=== PATIENT | male | born 1960 | race African-American/Black ===

== ENCOUNTER 2017-11-10 12:56 | Inpatient (IN) | payer OTHER ==
[2017-11-10 15:38] VITALS: BMI 27.7
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
[2017-11-10] MEDS ORDERED: LOPERAMIDE HCL 2 MG CAPSULE PO PRN (17:33)
[2017-11-10] MEDS ORDERED: MAGNESIUM CITRATE 300 ML BOTTLE PO PRN (17:33)
[2017-11-10] MEDS ORDERED: IBUPROFEN 400 MG TABLET (FP) PO PRN (17:33)
[2017-11-10] MEDS ORDERED: MAG HYDROX/AL HYDROX/SIMETH 30 ML UNIT-DOSE CUP PO PRN (17:33)
[2017-11-10] MEDS ORDERED: guaiFENesin/D-METHORPHAN HB 10 ML UNIT-DOSE CUPS PO PRN (17:33)
[2017-11-10] MEDS ORDERED: P-EPHED 60MG/TRIPROLIDI 2.5MG TABLET PO PRN (17:33)
[2017-11-10] MEDS ORDERED: MAGNESIUM HYDROX 2400MG/30ML ORAL SUSPENSION 30 ML CUP PO PRN (17:33)
[2017-11-10] MEDS ORDERED: MENTHOL/PHENOL 1 EACH UD MM PRN (17:33)
[2017-11-10] MEDS: chlordiazePOXIDE HCL 25 MG CAPSULE PO PRN (19:15)
[2017-11-10] MEDS: cloNIDine HCL 0.1 MG TABLET PO PRN (19:15)
[2017-11-10] MEDS: chlordiazePOXIDE HCL 25 MG CAPSULE PO SCH (22:36)
[2017-11-10] MEDS: BACLOFEN 10 MG TABLET (FP) PO PRN (22:36)
[2017-11-10] MEDS: NAPROXEN 500 MG TABLET (FP) PO PRN (22:36)
[2017-11-10] MEDS: RANITIDINE HCL 150 MG TABLET (FP) PO SCH (22:37)
[2017-11-10] MEDS: THIAMINE HCL 100 MG TABLET (FP) PO SCH (22:37)
[2017-11-10] MEDS: MINERAL OIL/PETROLAT/WATER TOPICAL CREAM 113 GM JAR TP SCH (22:39)
[2017-11-10] MEDS: ACETAMINOPHEN 325 MG TABLET (FP) PO PRN (22:58)
[2017-11-10 23:12] LABS: URINE APPEARANCE CLOUDY; URINE BILIRUBIN NEGATIVE (NEGATIVE); URINE BLOOD 1+ (NEGATIVE); URINE COLOR YELLOW; URINE GLUCOSE (UA) NEGATIVE (NEGATIVE); URINE KETONE NEGATIVE (NEGATIVE); URINE LEUK ESTERASE NEGATIVE (NEGATIVE); URINE NITRITE NEGATIVE (NEGATIVE); URINE UROBILINOGEN NEGATIVE mg/dL (0.2-1.0)
[2017-11-10 23:25] LABS: URINE PROTEIN 2+ (NEGATIVE)
[2017-11-11] MEDS: chlordiazePOXIDE HCL 25 MG CAPSULE PO SCH ×4 (05:43→22:59)
[2017-11-11] MEDS: ACETAMINOPHEN 325 MG TABLET (FP) PO PRN ×3 (05:45→15:46)
--- NOTE | 2017-11-11 09:16 | CONSULT ---
[facility] Psychiatric Consult - Data Date of interview: 11/11/17 Admission source: [facility] Identifying data: This is 57 years old male with psychiatric hospitalization history intoxicated with: Alcohol Substance Abuse History: - Smoking Cessation. Smoking history: Never smoked. Have you smoked in the past 12 months: No. Cigars Per Day: 0. Hx Chewing Tobacco Use: No. Initiated information on smoking cessation: No. - Substance & Tx. History. Hx Alcohol Use: Yes. Hx Substance Use: No. Substance Use Type : Alcohol. Hx Substance Use Treatment: Yes (2014). - Substances Abused. Alcohol. Route: Oral. Frequency: Daily. Amount used: GIN 1 PINT, BEER 2 OF 16 OZ. Age of first use: 14. Date of Last Use: 11/10/17 Medical History: PPD + hisotry, GERD, HTN Psychiatric History: PATOENT REPORTS HISTORY OF DEPRESSION, REPORTS MOST RECENT PSYCHIATRIC ADMISSION ON 2016 AT [facility] WITH DEPRESSED MOOD, DENIES SUICIDAL HISTORY. REPORTS NO MEDICATIONS TAKING PRIOR TO ADMISSION Physical/Sexual Abuse/Trauma History: Denies Additional Comment: Observation. Detox Unit Care Protocol Mental Status Exam - Mental Status Exam Alert and Oriented to: Person Cognitive Function: Fair Patient Appearance: Unkempt Affect: Flat Patient Behavior: Aggressive Speech Pattern: Appropriate Voice Loudness: Mildly Soft/Quiet Thought Process: Circumstantial Thought Disorder: Being Controlled Hallucinations: Denies Suicidal Ideation: Denies Homicidal Ideation: Denies Insight/Judgement: Fair Sleep: Difficulty falling asleep Appetite: Weight loss Muscle strength/Tone: Mild Hypotonicity Gait/Station: Shuffling Additional Comments: Observation. Detox Unit Care Protocol Psychiatric Findings - Problem List ([place] 1, 2,3) (1) Alcohol dependence with uncomplicated withdrawal Current Visit: Yes Status: Acute (2) Depression Current Visit: Yes Status: Suspected Qualifiers: Depression Type: dysthymia Qualified Code(s): F34.1 - Dysthymic disorder (3) Alcohol dependence Current Visit: No Status: Chronic (4) Anxiety and depression Current Visit: No Status: Chronic (5) Drug-induced mood disorder Current Visit: No Status: Chronic (6) Nicotine dependence Current Visit: No Status: Chronic - Initial Treatment Plan Initial Treatment Plan: Observation. Detox Unit Care Protocol
[2017-11-11 10:07] LABS: HEMATOCRIT 31.2 % (35.4-49); HEMOGLOBIN 9.8 GM/dL (11.7-16.9); MCH 24.7 pg (25.7-33.7); MCHC 31.3 g/dl (32.0-35.9); MEAN CELL VOLUME 78.8 fl (80-96); MEAN PLT VOLUME 8.7 fl (7.5-11.1); PLATELET COUNT 102 K/MM3 (134-434); RBC 3.95 M/mm3 (4.00-5.60); RDW 16.7 % (11.9-15.9); WHITE BLOOD COUNT 3.3 K/mm3 (4.0-10.0)
[2017-11-11 10:15] LABS: CHLORIDE 102 mmol/L (98-107); POTASSIUM 3.6 mmol/L (3.5-5.1); SODIUM 141 mmol/L (136-145)
[2017-11-11 10:33] LABS: ALBUMIN 3.4 g/dl (3.4-5.0); ALK PHOS 103 U/L (45-117); ANION GAP 10 (8-16); BILIRUBIN,TOTAL 0.5 mg/dL (0.2-1.0); BLOOD UREA NITROGEN 18 mg/dL (7-18); CALCIUM 8.5 mg/dL (8.5-10.1); CO2 29 mmol/L (21-32); CREATININE 1.1 mg/dL (0.7-1.3); GLUCOSE,RANDOM 82 mg/dL (74-106); SGOT/AST 48 U/L (15-37); SGPT/ALT 37 U/L (12-78); TOT PROT 6.9 g/dl (6.4-8.2)
[2017-11-11] MEDS: PRENATAL VITAMINS W/ FOLIC ACID TABLET (FP) PO SCH (10:35)
[2017-11-11] MEDS: NAPROXEN 500 MG TABLET (FP) PO PRN (10:36)
[2017-11-11] MEDS: RANITIDINE HCL 150 MG TABLET (FP) PO SCH ×2 (10:36→23:00)
[2017-11-11] MEDS: cloNIDine HCL 0.1 MG TABLET PO PRN (10:36)
[2017-11-11] MEDS: BACLOFEN 10 MG TABLET (FP) PO PRN (10:36)
[2017-11-11] MEDS ORDERED: IBUPROFEN 600 MG TABLET (FP) PO PRN (10:44)
[2017-11-11] MEDS ORDERED: PANTOPRAZOLE 40 MG TABLET (FP) PO ONE (10:46)
--- NOTE | 2017-11-11 10:55 | PN ---
S CIWA - CIWA Score Nausea/Vomitin-No Nausea/No Vomiting Muscle Tremors: 4-Moderate,w/Arms Extend Anxiety: 4-Mod. Anxious/Guarded Agitation: 4-Moderately Restless Paroxysmal Sweats: 3 Orientation: 0-Oriented Tacttile Disturbances: 0-None Auditory Disturbances: 0-None Visual Disturbances: 0-None Headache: 0-None Present CIWA-Ar Total Score: 15 BHS Progress Note (SOAP) Subjective: sweats shakes interrupted sleep body aches Objective: 11/11/17 10:54 Vital Signs Temperature 98 F 11/11/17 10:49 Pulse Rate 92 H 11/11/17 10:49 Respiratory Rate 16 11/11/17 10:49 Blood Pressure 148/91 11/11/17 10:49 O2 Sat by Pulse Oximetry (%) Laboratory Tests 11/10/17 11/11/17 11/11/17 21:00 07:00 07:00 WBC 3.3 L RBC 3.95 L Hgb 9.8 L D Hct 31.2 L MCV 78.8 L MCH 24.7 L MCHC 31.3 L RDW 16.7 H Plt Count 102 L MPV 8.7 Sodium 141 Potassium 3.6 Chloride 102 Carbon Dioxide 29 Anion Gap 10 BUN 18 Creatinine 1.1 D Creat Clearance w eGFR > 60 Random Glucose 82 Calcium 8.5 Total Bilirubin 0.5 D AST 48 H D ALT 37 Alkaline Phosphatase 103 D Total Protein 6.9 Albumin 3.4 Urine Color Yellow Urine Appearance Cloudy Urine pH 5.0 Ur Specific [place] 1.026 Urine Protein 2+ H Urine Glucose (UA) Negative Urine Ketones Negative Urine Blood 1+ H Urine Nitrite Negative Urine Bilirubin Negative Urine Urobilinogen Negative aaox3 low H:H; iron supplement ordered repeat u/a repeat cbc Assessment: 11/11/17 10:55 withdrawal sx Plan: continue detox increase fluids protonix 40mg ordered motrin 600mg prn f/u repeated labs
--- NOTE | 2017-11-11 11:41 | EKG ---
Test Reason : Blood Pressure : / mmHG Vent. Rate : 080 BPM Atrial Rate : 080 BPM P-R Int : 132 ms QRS Dur : 086 ms QT Int : 378 ms P-R-T Axes : 049 012 009 degrees QTc Int : 435 ms POOR DATA QUALITY, INTERPRETATION MAY BE ADVERSELY AFFECTED NORMAL SINUS RHYTHM WITH SINUS ARRHYTHMIA MODERATE VOLTAGE CRITERIA FOR LVH, MAY BE NORMAL VARIANT BORDERLINE ECG NO PREVIOUS ECGS AVAILABLE Confirmed by RICHMOND ROACH, DYLAN ([id number]) on 11/11/2017 11:40:57 AM Referred By: Confirmed By:DYLAN FRAGOSO MD
[2017-11-11] MEDS ORDERED: FLU VACCINE QUAD 60 MCG/0.5 ML (MDV 17-18) IM ONE (12:00)
--- NOTE | 2017-11-11 15:06 | EKG ---
Test Reason : Blood Pressure : / mmHG Vent. Rate : 086 BPM Atrial Rate : 086 BPM P-R Int : 134 ms QRS Dur : 090 ms QT Int : 414 ms P-R-T Axes : 065 012 006 degrees QTc Int : 495 ms NORMAL SINUS RHYTHM POSSIBLE LEFT ATRIAL ENLARGEMENT LEFT VENTRICULAR HYPERTROPHY SEPTAL INFARCT , AGE UNDETERMINED ABNORMAL ECG WHEN COMPARED WITH ECG OF 10-NOV-2017 18:57, SEPTAL INFARCT IS NOW PRESENT NONSPECIFIC T WAVE ABNORMALITY NOW EVIDENT IN ANTERIOR LEADS QT HAS LENGTHENED Confirmed by DYLAN FRAGOSO MD ([id number]) on 11/11/2017 3:06:07 PM Referred By: Confirmed By:DYLAN FRAGOSO MD
[2017-11-11] MEDS: chlordiazePOXIDE HCL 25 MG CAPSULE PO PRN (15:47)
[2017-11-11] MEDS: MINERAL OIL/PETROLAT/WATER TOPICAL CREAM 113 GM JAR TP SCH (22:59)
[2017-11-11] MEDS: THIAMINE HCL 100 MG TABLET (FP) PO SCH (23:00)
[2017-11-12] MEDS: chlordiazePOXIDE HCL 25 MG CAPSULE PO SCH ×3 (05:47→17:51)
[2017-11-12] MEDS: ACETAMINOPHEN 325 MG TABLET (FP) PO PRN ×2 (05:49→10:17)
[2017-11-12] MEDS: PRENATAL VITAMINS W/ FOLIC ACID TABLET (FP) PO SCH (10:16)
[2017-11-12] MEDS: BACLOFEN 10 MG TABLET (FP) PO PRN (10:17)
[2017-11-12] MEDS: PANTOPRAZOLE 40 MG TABLET (FP) PO SCH (10:18)
--- NOTE | 2017-11-12 10:46 | PN ---
[facility] CIWA - CIWA Score Nausea/Vomitin-No Nausea/No Vomiting Muscle Tremors: 3 Anxiety: 2 Agitation: 3 Paroxysmal Sweats: 3 Orientation: 0-Oriented Tacttile Disturbances: 0-None Auditory Disturbances: 0-None Visual Disturbances: 0-None Headache: 0-None Present CIWA-Ar Total Score: 11 [facility] Progress Note (SOAP) Subjective: sweats agitation tired body aches Objective: 11/12/17 10:45 Vital Signs Temperature 95.2 F L 11/12/17 07:07 Pulse Rate 84 11/12/17 07:07 Respiratory Rate 18 11/12/17 07:07 Blood Pressure 142/82 11/12/17 07:07 O2 Sat by Pulse Oximetry (%) Laboratory Tests 11/10/17 11/10/17 11/11/17 07:00 21:00 07:00 WBC RBC Hgb Hct MCV MCH MCHC RDW Plt Count MPV Sodium Potassium Chloride Carbon Dioxide Anion Gap BUN Creatinine Creat Clearance w eGFR Random Glucose Calcium Total Bilirubin AST ALT Alkaline Phosphatase Total Protein Albumin Urine Color Yellow Urine Appearance Cloudy Urine pH 5.0 Ur Specific [place] 1.026 Urine Protein 2+ H Urine Glucose (UA) Negative Urine Ketones Negative Urine Blood 1+ H Urine Nitrite Negative Urine Bilirubin Negative Urine Urobilinogen Negative Ur Leukocyte Esterase Negative RPR Titer Hepatitis C Antibody <0.1 HIV 1&2 Antibody Screen Negative HIV P24 Antigen Negative 11/11/17 11/11/17 11/11/17 07:00 07:00 07:00 WBC 3.3 L RBC 3.95 L Hgb 9.8 L D Hct 31.2 L MCV 78.8 L MCH 24.7 L MCHC 31.3 L RDW 16.7 H Plt Count 102 L MPV 8.7 Sodium 141 Potassium 3.6 Chloride 102 Carbon Dioxide 29 Anion Gap 10 BUN 18 Creatinine 1.1 D Creat Clearance w eGFR > 60 Random Glucose 82 Calcium 8.5 Total Bilirubin 0.5 D AST 48 H D ALT 37 Alkaline Phosphatase 103 D Total Protein 6.9 Albumin 3.4 Urine Color Urine Appearance Urine pH Ur Specific [place] Urine Protein Urine Glucose (UA) Urine Ketones Urine Blood Urine Nitrite Urine Bilirubin Urine Urobilinogen Ur Leukocyte Esterase RPR Titer Nonreactive Hepatitis C Antibody HIV 1&2 Antibody Screen HIV P24 Antigen aaox3 ambulating no acute distress Assessment: 11/12/17 10:45 withdrawal sx Plan: continue detox increase fluids
[2017-11-12] MEDS: chlordiazePOXIDE 5 MG CAPSULE PO SCH (22:16)
[2017-11-12] MEDS: THIAMINE HCL 100 MG TABLET (FP) PO SCH (22:16)
[2017-11-12] MEDS: MINERAL OIL/PETROLAT/WATER TOPICAL CREAM 113 GM JAR TP SCH (22:17)
[2017-11-13] MEDS: chlordiazePOXIDE 5 MG CAPSULE PO SCH ×3 (05:19→18:07)
[2017-11-13] MEDS: ACETAMINOPHEN 325 MG TABLET (FP) PO PRN ×3 (05:20→23:00)
[2017-11-13] MEDS: PANTOPRAZOLE 40 MG TABLET (FP) PO SCH (10:36)
[2017-11-13] MEDS: PRENATAL VITAMINS W/ FOLIC ACID TABLET (FP) PO SCH (10:36)
--- NOTE | 2017-11-13 13:14 | PN ---
BHS Progress Note (SOAP) Subjective: alert,irritable,interrupted sleep Objective: 11/13/17 13:13 Vital Signs Temperature 97.7 F 11/13/17 10:00 Pulse Rate 93 H 11/13/17 10:00 Respiratory Rate 118 H 11/13/17 10:00 Blood Pressure 140/100 11/13/17 10:00 O2 Sat by Pulse Oximetry (%) Assessment: 11/13/17 13:13 withdrawal symptom Plan: continue detox,discharge in am
[2017-11-13] MEDS: THIAMINE HCL 100 MG TABLET (FP) PO SCH (22:16)
[2017-11-13] MEDS: chlordiazePOXIDE HCL 10 MG CAPSULE PO SCH (22:16)
[2017-11-13] MEDS: MINERAL OIL/PETROLAT/WATER TOPICAL CREAM 113 GM JAR TP SCH (22:17)
[2017-11-14] MEDS: chlordiazePOXIDE HCL 10 MG CAPSULE PO SCH ×2 (05:42→11:05)
[2017-11-14] MEDS: ACETAMINOPHEN 325 MG TABLET (FP) PO PRN (05:43)
[2017-11-14] MEDS: PANTOPRAZOLE 40 MG TABLET (FP) PO SCH (10:23)
[2017-11-14] MEDS: PRENATAL VITAMINS W/ FOLIC ACID TABLET (FP) PO SCH (10:23)
--- NOTE | 2017-11-14 10:32 | DS ---
[facility] Detox Discharge Summary Admission Date: 11/10/17 Discharge Date: 11/14/17 - History Pertinent Past History: Alcohol dependence with uncomplicated withdrawals GERD - Physical Exam Results Vital Signs: Vital Signs Temperature 97.1 F L 11/14/17 06:00 Pulse Rate 76 11/14/17 06:00 Respiratory Rate 18 11/14/17 06:00 Blood Pressure 138/92 11/14/17 06:00 O2 Sat by Pulse Oximetry (%) Pertinent Admission Physical Exam Findings: withdrawal sx Laboratory Last Values WBC 3.3 K/mm3 (4.0-10.0) L 11/11/17 07:00 RBC 3.95 M/mm3 (4.00-5.60) L 11/11/17 07:00 Hgb 9.8 GM/dL (11.7-16.9) L D 11/11/17 07:00 Hct 31.2 % (35.4-49) L 11/11/17 07:00 MCV 78.8 fl (80-96) L 11/11/17 07:00 MCH 24.7 pg (25.7-33.7) L 11/11/17 07:00 MCHC 31.3 g/dl (32.0-35.9) L 11/11/17 07:00 RDW 16.7 % (11.9-15.9) H 11/11/17 07:00 Plt Count 102 K/MM3 (134-434) L 11/11/17 07:00 MPV 8.7 fl (7.5-11.1) 11/11/17 07:00 Sodium 141 mmol/L (136-145) 11/11/17 07:00 Potassium 3.6 mmol/L (3.5-5.1) 11/11/17 07:00 Chloride 102 mmol/L (98-107) 11/11/17 07:00 Carbon Dioxide 29 mmol/L (21-32) 11/11/17 07:00 Anion Gap 10 (8-16) 11/11/17 07:00 BUN 18 mg/dL (7-18) 11/11/17 07:00 Creatinine 1.1 mg/dL (0.7-1.3) D 11/11/17 07:00 Creat Clearance w eGFR > 60 (>60) 11/11/17 07:00 Random Glucose 82 mg/dL (74-106) 11/11/17 07:00 Calcium 8.5 mg/dL (8.5-10.1) 11/11/17 07:00 Total Bilirubin 0.5 mg/dL (0.2-1.0) D 11/11/17 07:00 AST 48 U/L (15-37) H D 11/11/17 07:00 ALT 37 U/L (12-78) 11/11/17 07:00 Alkaline Phosphatase 103 U/L (45-117) D 11/11/17 07:00 Total Protein 6.9 g/dl (6.4-8.2) 11/11/17 07:00 Albumin 3.4 g/dl (3.4-5.0) 11/11/17 07:00 Urine Color Yellow 11/10/17 21:00 Urine Appearance Cloudy 11/10/17 21:00 Urine pH 5.0 (5.0-8.0) 11/10/17 21:00 Ur Specific [place] 1.026 (1.001-1.035) 11/10/17 21:00 Urine Protein 2+ (NEGATIVE) H 11/10/17 21:00 Urine Glucose (UA) Negative (NEGATIVE) 11/10/17 21:00 Urine Ketones Negative (NEGATIVE) 11/10/17 21:00 Urine Blood 1+ (NEGATIVE) H 11/10/17 21:00 Urine Nitrite Negative (NEGATIVE) 11/10/17 21:00 Urine Bilirubin Negative (NEGATIVE) 11/10/17 21:00 Urine Urobilinogen Negative mg/dL (0.2-1.0) 11/10/17 21:00 Ur Leukocyte Esterase Negative (NEGATIVE) 11/10/17 21:00 RPR Titer Nonreactive (NONREACTIVE) 11/11/17 07:00 Hepatitis C Antibody <0.1 s/co ratio (0.0-0.9) 11/10/17 07:00 HIV 1&2 Antibody Screen Negative 11/11/17 07:00 HIV P24 Antigen Negative 11/11/17 07:00 labs noted - Treatment Hospital Course: Detox Protocol Followed, Detoxed Safely, Responded well, Discharged Condition Good, Rehab Referral Accepted Patient has Accepted a Rehab Referral to: 24 hour Rehab center - Medication Discharge Medications: Ambulatory Orders NK [No Known Home Medication] 05/18/15 - Diagnosis (1) Alcohol dependence with uncomplicated withdrawal Current Visit: Yes Status: Acute (2) Nicotine dependence Current Visit: Yes Status: Chronic Qualifiers: Nicotine product type: cigarettes Substance use status: uncomplicated Qualified Code(s): F17.210 - Nicotine dependence, cigarettes, uncomplicated (3) GERD (gastroesophageal reflux disease) Current Visit: Yes Status: Chronic Qualifiers: Esophagitis presence: without esophagitis Qualified Code(s): K21.9 - Gastro -esophageal reflux disease without esophagitis (4) Hypertension Current Visit: No Status: Chronic Qualifiers: Hypertension type: essential hypertension Qualified Code(s): I10 - Essential (primary) hypertension - AMA Did Patient Leave Against Medical Advice: No
[2017-11-14] MEDS ORDERED: amLODIPine BESYLATE 5 MG TABLET (FP) PO ONE (10:46)
[2017-11-14] MEDS ORDERED: cloNIDine HCL 0.1 MG TABLET PO ONE (10:56)
--- NOTE | 2017-11-14 11:11 | PN ---
S Progress Note Note: Pt noted with elevated BP 145/114, repeat Bp - 136/100. Pt denies any headache, dizziness nor other complaints One time dose of Clonidine 0.1mg ordered. Maintenance Norvasc 5mg daily prescribed and sent to [facility] pharmacy Pt to f/u with his PMD @ [facility]. Repeat Bp - 152/98 @ 11:59A pt d/c as planned
[2017-11-14 11:45] VITALS: BP 145/114; PULSE 87; TEMP 98.2
[2017-11-15] MEDS ORDERED: amLODIPine BESYLATE 5 MG TABLET (FP) PO SCH (10:00)
== END 2017-11-14 12:25 | disposition home or self-care (01) | DRG 775 ==
LOC: YASAS 12:56 → Y6N 16:47
PROVIDERS: ADMIT Internal Medicine; ATTEND Internal Medicine
PROC: HZ2ZZZZ Detoxification Services for Substance Abuse Treatment (ICD-10-PCS; principal; 2017-11-10)
DX: F10.230 Alcohol dependence with withdrawal, uncomplicated (principal); F17.210 Nicotine dependence, cigarettes, uncomplicated; F34.1 Dysthymic disorder; F41.8 Other specified anxiety disorders; F19.24 Other psychoactive substance dependence with psychoactive substance-induced mood disorder; I10 Essential (primary) hypertension; K21.9 Gastro-esophageal reflux disease without esophagitis
CPT/HCPCS: 36415; 71020-TC; 80053; 81003; 81015; 85027; 86593; 86803; 87389; 90688; 93005; 93010; G0008; J0475

== ENCOUNTER 2018-09-16 16:39 | Inpatient (IN) | payer OTHER ==
[2018-09-16 19:05] VITALS: BMI 32.5
--- NOTE | 2018-09-16 20:27 | HP ---
CIWA Score - CIWA Score Nausea/Vomitin Muscle Tremors: 4-Moderate,w/Arms Extend Anxiety: 3 Agitation: 4-Moderately Restless Paroxysmal Sweats: 1-Minimal Palms Moist Orientation: 0-Oriented Tacttile Disturbances: 0-None Auditory Disturbances: 0-None Visual Disturbances: 0-None Headache: 0-None Present CIWA-Ar Total Score: 14 Admission ROS BHS - HPI Chief Complaint: Alcohol withdrawal symptoms Allergies/Adverse Reactions: Allergies Allergy/AdvReac Type Severity Reaction Status Date / Time No Known Allergies Allergy Verified 09/16/18 20:14 History of Present Illness: 58 years old male with 15 years history of alcohol dependence is seeking admission to detox. Patient has been in previous detox at [facility] and reports insignificant period of sobriety. He has medical history of hypertension , GERD and arthritis. He denies suicide attempt and suicidal ideation at this time Exam Limitations: No Limitations - Ebola screening Have you traveled outside of the country in the last 21 days: No (N) Have you had contact with anyone from an Ebola affected area: No Have you been sick,other than usual withdrawal symptoms: No Do you have a fever: No - Review of Systems Constitutional: Chills, Malaise, Weakness EENT: reports: No Symptoms Reported Respiratory: reports: No Symptoms reported Cardiac: reports: No Symptoms Reported GI: reports: Nausea, Poor Appetite, Poor Fluid Intake, Abdominal cramping : reports: No Symptoms Reported Musculoskeletal: reports: Back Pain Integumentary: reports: No Symptoms Reported Neuro: reports: Tremors Endocrine: reports: No Symptoms Reported Hematology: reports: No Symptoms Reported Psychiatric: reports: Mood/Affect Appropiate, Orientated x3 Other Systems: Reviewed and Negative Patient History - Patient Medical History Hx Anemia: No Hx Asthma: No Hx Chronic Obstructive Pulmonary Disease (COPD): No Hx Cancer: No Hx Cardiac Disorders: No Hx Congestive Heart Failure: No Hx Hypertension: Yes Hx Hypercholesterolemia: No Hx Pacemaker: No HX Cerebrovascular Accident: No Hx Seizures: No Hx Dementia: No Hx Diabetes: No Hx Gastrointestinal Disorders: Yes (GERD) Hx Liver Disease: No Hx Genitourinary Disorders: No Hx Sexually Transmitted Disorders: No Hx Renal Disease (ESRD): No Hx Thyroid Disease: No Hx Human Immunodeficiency Virus (HIV): No (last 03/13) Hx Hepatitis C: No Hx Depression: Yes (Not on medication) Hx Suicide Attempt: No (Denies suicidal ideation at this time) Hx Bipolar Disorder: No Hx Schizophrenia: No - Patient Surgical History Past Surgical History: Yes Hx Neurologic Surgery: No Hx Cataract Extraction: No Hx Cardiac Surgery: No Hx Lung Surgery: No Hx Breast Surgery: No Hx Breast Biopsy: No Hx Abdominal Surgery: No Hx Appendectomy: No Hx Cholecystectomy: No Hx Genitourinary Surgery: No Hx Section: No Hx Orthopedic Surgery: No Other Surgical History: right inguinal hernia repair in 06/2014 Anesthesia Reaction: No - PPD History Previous Implant?: Yes (POSITIVE PPD) Documented Results: Positive w/o proof Date: 01/05/15 Results: POSITIVE PPD to be Administered?: No - Reproductive History Patient is a Female of Child Bearing Age (11 -55 yrs old): No (Male) - Smoking Cessation Smoking history: Current some day smoker Have you smoked in the past 12 months: No Aproximately how many cigarettes per day: 2 Cigars Per Day: 0 Hx Chewing Tobacco Use: No Initiated information on smoking cessation: Yes 'Breaking Loose' booklet given: 09/16/18 - Substance & Tx. History Hx Alcohol Use: Yes Hx Substance Use: No Substance Use Type: Alcohol Hx Substance Use Treatment: Yes ([facility]) - Substances Abused Alcohol Route: Oral Frequency: Daily Amount used: 1 PINT GIN Age of first use: 14 Date of Last Use: 09/16/18 Family Disease History - Family Disease History Family Disease History: [place]: Father (), Other: Father, Mother () , Brother (NO CONTACT), Sister (NO CONTACT) Admission Physical Exam S - Vital Signs Vital Signs: Vital Signs - 24 hr 09/16/18 19:03 Temperature 98.3 F Pulse Rate 118 H Respiratory 19 Rate Blood Pressure 138/78 - Physical General Appearance: Yes: Moderate Distress, Irritable, Sweating HEENTM: Yes: EOMI, Normal ENT Inspection, Normal Voice, VENECIA Respiratory: Yes: Lungs Clear, Normal Breath Sounds, No Respiratory Distress Neck: Yes: Supple Breast: Yes: Breast Exam Deferred Cardiology: Yes: Regular Rhythm, Regular Rate Abdominal: Yes: Normal Bowel Sounds Genitourinary: Yes: Within Normal Limits Back: Yes: Normal Inspection Musculoskeletal: Yes: Within Normal Limits Extremities: Yes: Tremors Neurological: Yes: rubber goods tester water II-XII NML intact, Alert, Normal Mood/Affect Integumentary: Yes: Warm Lymphatic: Yes: Within Normal Limits - Diagnostic (1) Alcohol dependence with uncomplicated withdrawal Current Visit: Yes Status: Chronic (2) Anxiety and depression Current Visit: Yes Status: Chronic (3) GERD (gastroesophageal reflux disease) Current Visit: No Status: Chronic Qualifiers: Esophagitis presence: without esophagitis Qualified Code(s): K21.9 - Gastro -esophageal reflux disease without esophagitis (4) History of anemia Current Visit: Yes Status: Chronic (5) Hypertension Current Visit: Yes Status: Chronic Qualifiers: Hypertension type: essential hypertension Qualified Code(s): I10 - Essential (primary) hypertension (6) Nicotine dependence Current Visit: Yes Status: Chronic Qualifiers: Nicotine product type: cigarettes Substance use status: uncomplicated Qualified Code(s): F17.210 - Nicotine dependence, cigarettes, uncomplicated (7) Depression Current Visit: Yes Status: Suspected Qualifiers: Depression Type: dysthymia Qualified Code(s): F34.1 - Dysthymic disorder (8) Positive PPD, treated Current Visit: Yes Status: Chronic Cleared for Admission [facility] - Detox or Rehab [facility] Level of Care: Medically Managed Detox Regimen/Protocol: Librium [facility] Breath Alcohol Content Breath Alcohol Content: 0.168 Urine Drug Screen - Results Drug Screen Negative: Yes
[2018-09-16] MEDS ORDERED: MAGNESIUM CITRATE 300 ML BOTTLE PO PRN (20:47)
[2018-09-16] MEDS ORDERED: IBUPROFEN 400 MG TABLET (FP) PO PRN (20:47)
[2018-09-16] MEDS ORDERED: LOPERAMIDE HCL 2 MG CAPSULE PO PRN (20:47)
[2018-09-16] MEDS ORDERED: chlordiazePOXIDE HCL 25 MG CAPSULE PO PRN (20:47)
[2018-09-16] MEDS ORDERED: guaiFENesin/D-METHORPHAN HB 10 ML UNIT-DOSE CUPS PO PRN (20:47)
[2018-09-16] MEDS ORDERED: NICOTINE POLACRILEX 2 MG GUM BC PRN (20:47)
[2018-09-16] MEDS ORDERED: MAGNESIUM HYDROX 2400MG/30ML ORAL SUSPENSION 30 ML CUP PO PRN (20:47)
[2018-09-16] MEDS ORDERED: P-EPHED 60MG/TRIPROLIDI 2.5MG TABLET PO PRN (20:47)
[2018-09-16] MEDS ORDERED: MENTHOL/PHENOL 1 EACH UD MM PRN (20:47)
[2018-09-16] MEDS: chlordiazePOXIDE HCL 25 MG CAPSULE PO SCH (22:00)
[2018-09-16] MEDS: THIAMINE HCL 100 MG TABLET (FP) PO SCH (22:00)
[2018-09-17] MEDS: chlordiazePOXIDE HCL 25 MG CAPSULE PO SCH ×4 (05:36→22:49)
[2018-09-17] MEDS: NICOTINE 14 MG/24 HOURS TOPICAL PATCH TD SCH (10:38)
[2018-09-17] MEDS: PRENATAL VITAMINS W/ FOLIC ACID TABLET (FP) PO SCH (10:38)
[2018-09-17 10:54] LABS: HEMATOCRIT 29.9 % (35.4-49); HEMOGLOBIN 9.2 GM/dL (11.7-16.9); MCHC 30.9 g/dl (32.0-35.9); MEAN CELL VOLUME 71.1 fl (80-96); MEAN PLT VOLUME 8.5 fl (7.5-11.1); PLATELET COUNT 152 K/MM3 (134-434); RBC 4.21 M/mm3 (4.00-5.60); RDW 18.2 % (11.9-15.9); WHITE BLOOD COUNT 5.1 K/mm3 (4.0-10.0)
[2018-09-17 11:07] LABS: ALBUMIN 3.4 g/dl (3.4-5.0); ALK PHOS 91 U/L (45-117); ANION GAP 9 MMOL/L (8-16); BILIRUBIN,TOTAL 0.3 mg/dL (0.2-1); BLOOD UREA NITROGEN 17 mg/dL (7-18); CALCIUM 8.5 mg/dL (8.5-10.1); CHLORIDE 106 mmol/L (98-107); CO2 29 mmol/L (21-32); CREATININE 1.1 mg/dL (0.55-1.3); GLUCOSE,RANDOM 81 mg/dL (74-106); POTASSIUM 4.3 mmol/L (3.5-5.1); SGOT/AST 20 U/L (15-37); SGPT/ALT 25 U/L (13-61); SODIUM 144 mmol/L (136-145); TOT PROT 7.1 g/dl (6.4-8.2)
[2018-09-17 11:20] LABS: URINE APPEARANCE CLEAR; URINE BILIRUBIN NEGATIVE (<2.0 mg/dL); URINE COLOR YELLOW; URINE GLUCOSE (UA) NEGATIVE (NEGATIVE); URINE KETONE NEGATIVE (NEGATIVE); URINE LEUK ESTERASE NEGATIVE (NEGATIVE); URINE NITRITE NEGATIVE (NEGATIVE); URINE PROTEIN NEGATIVE (NEGATIVE); URINE UROBILINOGEN NEGATIVE mg/dL (0.2-1.0)
--- NOTE | 2018-09-17 14:21 | PN ---
[facility] CIWA - CIWA Score Nausea/Vomitin-No Nausea/No Vomiting Muscle Tremors: None Anxiety: 4-Mod. Anxious/Guarded Agitation: 4-Moderately Restless Paroxysmal Sweats: No Perspiration Orientation: 0-Oriented Tacttile Disturbances: 0-None Auditory Disturbances: 0-None Visual Disturbances: 0-None Headache: 0-None Present CIWA-Ar Total Score: 8 BHS Progress Note (SOAP) Subjective: PATIENT CONTINUES WITH DETOX REGIMEN, PACING ON UNIT. +ANXIETY/RESTLESSNESS. Objective: 09/17/18 14:19 Laboratory Tests 09/17/18 09/17/18 09/17/18 08:00 08:00 08:00 WBC 5.1 RBC 4.21 Hgb 9.2 L Hct 29.9 L MCV 71.1 L MCH 22.0 L D MCHC 30.9 L RDW 18.2 H Plt Count 152 D MPV 8.5 Sodium 144 Potassium 4.3 Chloride 106 Carbon Dioxide 29 Anion Gap 9 BUN 17 Creatinine 1.1 Creat Clearance w eGFR > 60 Random Glucose 81 Calcium 8.5 Total Bilirubin 0.3 AST 20 ALT 25 Alkaline Phosphatase 91 Total Protein 7.1 Albumin 3.4 Urine Color Urine Appearance Urine pH Ur Specific [place] Urine Protein Urine Glucose (UA) Urine Ketones Urine Blood Urine Nitrite Urine Bilirubin Urine Urobilinogen Ur Leukocyte Esterase RPR Titer Nonreactive 09/17/18 08:50 WBC RBC Hgb Hct MCV MCH MCHC RDW Plt Count MPV Sodium Potassium Chloride Carbon Dioxide Anion Gap BUN Creatinine Creat Clearance w eGFR Random Glucose Calcium Total Bilirubin AST ALT Alkaline Phosphatase Total Protein Albumin Urine Color Yellow Urine Appearance Clear Urine pH 5.0 Ur Specific [place] 1.015 Urine Protein Negative Urine Glucose (UA) Negative Urine Ketones Negative Urine Blood Negative Urine Nitrite Negative Urine Bilirubin Negative Urine Urobilinogen Negative Ur Leukocyte Esterase Negative RPR Titer Vital Signs Temperature 98 F 09/17/18 10:51 Pulse Rate 110 H 09/17/18 10:51 Respiratory Rate 18 09/17/18 10:51 Blood Pressure 140/89 09/17/18 10:51 O2 Sat by Pulse Oximetry (%) ALERT AND ORIENTED X 3 AMB AD VITOR, PACING ON UNIT EXT FULL ROM Assessment: 09/17/18 14:20 WITHDRAWAL SX Plan: CONTINUE DETOX ORDERED ENCOURAGE ORAL FLUIDS CONTINUE TO MONITOR CLINICALLY
--- NOTE | 2018-09-17 18:09 | EKG ---
Test Reason : Blood Pressure : / mmHG Vent. Rate : 101 BPM Atrial Rate : 101 BPM P-R Int : 136 ms QRS Dur : 092 ms QT Int : 344 ms P-R-T Axes : 064 018 -10 degrees QTc Int : 446 ms SINUS TACHYCARDIA VOLTAGE CRITERIA FOR LEFT VENTRICULAR HYPERTROPHY ABNORMAL ECG WHEN COMPARED WITH ECG OF 11-NOV-2017 13:51, CRITERIA FOR SEPTAL INFARCT ARE NO LONGER PRESENT T WAVE INVERSION MORE EVIDENT IN INFERIOR LEADS QT HAS SHORTENED Confirmed by DYLAN FRAGOSO MD ([id number]) on 09/17/2018 6:08:50 PM Referred By: Confirmed By:DYLAN FRAGOSO MD
[2018-09-17] MEDS: THIAMINE HCL 100 MG TABLET (FP) PO SCH (22:49)
[2018-09-17] MEDS: MELATONIN 5 MG TABLETS PO PRN (22:50)
[2018-09-18] MEDS: chlordiazePOXIDE HCL 25 MG CAPSULE PO SCH ×3 (05:36→17:47)
[2018-09-18] MEDS: MAG HYDROX/AL HYDROX/SIMETH 30 ML UNIT-DOSE CUP PO PRN ×2 (05:38→10:55)
[2018-09-18] MEDS: PRENATAL VITAMINS W/ FOLIC ACID TABLET (FP) PO SCH (10:14)
[2018-09-18] MEDS: ACETAMINOPHEN 325 MG TABLET (FP) PO PRN (10:15)
[2018-09-18] MEDS: NICOTINE 14 MG/24 HOURS TOPICAL PATCH TD SCH (10:16)
--- NOTE | 2018-09-18 17:40 | PN ---
S CIWA - CIWA Score Nausea/Vomitin Muscle Tremors: 3 Anxiety: 3 Agitation: 3 Paroxysmal Sweats: 3 Orientation: 0-Oriented Tacttile Disturbances: 0-None Auditory Disturbances: 0-None Visual Disturbances: 0-None Headache: 1-Very Mild CIWA-Ar Total Score: 15 S Progress Note (SOAP) Subjective: Stomach ache, sweating, interrupted sleep Objective: 09/18/18 17:39 Last Vital Signs Temp Pulse Resp BP Pulse Ox 97.4 F L 99 H 20 128/85 09/18/18 13:20 09/18/18 13:20 09/18/18 13:20 09/18/18 13:20 Laboratory Tests 09/17/18 09/17/18 09/17/18 08:00 08:00 08:00 WBC 5.1 RBC 4.21 Hgb 9.2 L Hct 29.9 L MCV 71.1 L MCH 22.0 L D MCHC 30.9 L RDW 18.2 H Plt Count 152 D MPV 8.5 Sodium 144 Potassium 4.3 Chloride 106 Carbon Dioxide 29 Anion Gap 9 BUN 17 Creatinine 1.1 Creat Clearance w eGFR > 60 Random Glucose 81 Calcium 8.5 Total Bilirubin 0.3 AST 20 ALT 25 Alkaline Phosphatase 91 Total Protein 7.1 Albumin 3.4 Urine Color Urine Appearance Urine pH Ur Specific [place] Urine Protein Urine Glucose (UA) Urine Ketones Urine Blood Urine Nitrite Urine Bilirubin Urine Urobilinogen Ur Leukocyte Esterase RPR Titer Nonreactive 09/17/18 08:50 WBC RBC Hgb Hct MCV MCH MCHC RDW Plt Count MPV Sodium Potassium Chloride Carbon Dioxide Anion Gap BUN Creatinine Creat Clearance w eGFR Random Glucose Calcium Total Bilirubin AST ALT Alkaline Phosphatase Total Protein Albumin Urine Color Yellow Urine Appearance Clear Urine pH 5.0 Ur Specific [place] 1.015 Urine Protein Negative Urine Glucose (UA) Negative Urine Ketones Negative Urine Blood Negative Urine Nitrite Negative Urine Bilirubin Negative Urine Urobilinogen Negative Ur Leukocyte Esterase Negative RPR Titer Labs reviewed Assessment: 09/18/18 17:39 Withdrawal symptoms Plan: Continue detox Encouraged PO water intake
[2018-09-18] MEDS: MELATONIN 5 MG TABLETS PO PRN (22:51)
[2018-09-18] MEDS: THIAMINE HCL 100 MG TABLET (FP) PO SCH (22:51)
[2018-09-18] MEDS: chlordiazePOXIDE 5 MG CAPSULE PO SCH (22:51)
[2018-09-19] MEDS: chlordiazePOXIDE 5 MG CAPSULE PO SCH ×3 (05:28→17:45)
[2018-09-19] MEDS: ACETAMINOPHEN 325 MG TABLET (FP) PO PRN ×3 (05:29→22:23)
[2018-09-19] MEDS: NICOTINE 14 MG/24 HOURS TOPICAL PATCH TD SCH (10:38)
[2018-09-19] MEDS: PRENATAL VITAMINS W/ FOLIC ACID TABLET (FP) PO SCH (10:38)
--- NOTE | 2018-09-19 14:15 | PN ---
BHS Progress Note (SOAP) Subjective: Diarrhea Objective: 09/19/18 14:14 Last Vital Signs Temp Pulse Resp BP Pulse Ox 97.0 F L 98 H 20 145/97 09/19/18 13:19 09/19/18 13:19 09/19/18 13:19 09/19/18 13:19 Laboratory Tests 09/17/18 09/17/18 09/17/18 08:00 08:00 08:00 WBC 5.1 RBC 4.21 Hgb 9.2 L Hct 29.9 L MCV 71.1 L MCH 22.0 L D MCHC 30.9 L RDW 18.2 H Plt Count 152 D MPV 8.5 Sodium 144 Potassium 4.3 Chloride 106 Carbon Dioxide 29 Anion Gap 9 BUN 17 Creatinine 1.1 Creat Clearance w eGFR > 60 Random Glucose 81 Calcium 8.5 Total Bilirubin 0.3 AST 20 ALT 25 Alkaline Phosphatase 91 Total Protein 7.1 Albumin 3.4 Urine Color Urine Appearance Urine pH Ur Specific [place] Urine Protein Urine Glucose (UA) Urine Ketones Urine Blood Urine Nitrite Urine Bilirubin Urine Urobilinogen Ur Leukocyte Esterase RPR Titer Nonreactive 09/17/18 08:50 WBC RBC Hgb Hct MCV MCH MCHC RDW Plt Count MPV Sodium Potassium Chloride Carbon Dioxide Anion Gap BUN Creatinine Creat Clearance w eGFR Random Glucose Calcium Total Bilirubin AST ALT Alkaline Phosphatase Total Protein Albumin Urine Color Yellow Urine Appearance Clear Urine pH 5.0 Ur Specific [place] 1.015 Urine Protein Negative Urine Glucose (UA) Negative Urine Ketones Negative Urine Blood Negative Urine Nitrite Negative Urine Bilirubin Negative Urine Urobilinogen Negative Ur Leukocyte Esterase Negative RPR Titer Labs reviewed Assessment: 09/19/18 14:14 Withdrawal symptoms Noted with elevated blood pressure Plan: Continue detox Encouraged PO water intake Elevated blood pressure: clonidine 0.1mg PO q8hr prn (give if b/p > 140/90)
[2018-09-19] MEDS: MELATONIN 5 MG TABLETS PO PRN ×2 (22:22→22:40)
[2018-09-19] MEDS: cloNIDine HCL 0.1 MG TABLET PO PRN (22:22)
[2018-09-19] MEDS: chlordiazePOXIDE HCL 10 MG CAPSULE PO SCH (22:22)
[2018-09-19] MEDS: THIAMINE HCL 100 MG TABLET (FP) PO SCH (22:22)
[2018-09-20] MEDS: cloNIDine HCL 0.1 MG TABLET PO PRN (06:25)
[2018-09-20] MEDS: chlordiazePOXIDE HCL 10 MG CAPSULE PO SCH ×2 (06:25→10:50)
[2018-09-20] MEDS: ACETAMINOPHEN 325 MG TABLET (FP) PO PRN ×2 (06:25→10:50)
[2018-09-20] MEDS: PRENATAL VITAMINS W/ FOLIC ACID TABLET (FP) PO SCH (10:50)
[2018-09-20] MEDS: NICOTINE 14 MG/24 HOURS TOPICAL PATCH TD SCH (10:50)
--- NOTE | 2018-09-20 11:44 | DS ---
[facility] Detox Discharge Summary Admission Date: 09/16/18 Discharge Date: 09/20/18 - History Present History: Alcohol Dependence Pertinent Past History: Alcohol dependence GERD HTN PPD Positive Nicotine dependence - Physical Exam Results Vital Signs: Vital Signs Temperature 98 F 09/20/18 09:32 Pulse Rate 91 H 09/20/18 09:32 Respiratory Rate 18 09/20/18 09:32 Blood Pressure 119/80 09/20/18 09:32 O2 Sat by Pulse Oximetry (%) Pertinent Admission Physical Exam Findings: Withdrawal symptoms Laboratory Tests 09/17/18 09/17/18 09/17/18 08:00 08:00 08:00 WBC 5.1 RBC 4.21 Hgb 9.2 L Hct 29.9 L MCV 71.1 L MCH 22.0 L D MCHC 30.9 L RDW 18.2 H Plt Count 152 D MPV 8.5 Sodium 144 Potassium 4.3 Chloride 106 Carbon Dioxide 29 Anion Gap 9 BUN 17 Creatinine 1.1 Creat Clearance w eGFR > 60 Random Glucose 81 Calcium 8.5 Total Bilirubin 0.3 AST 20 ALT 25 Alkaline Phosphatase 91 Total Protein 7.1 Albumin 3.4 Urine Color Urine Appearance Urine pH Ur Specific [place] Urine Protein Urine Glucose (UA) Urine Ketones Urine Blood Urine Nitrite Urine Bilirubin Urine Urobilinogen Ur Leukocyte Esterase RPR Titer Nonreactive 09/17/18 08:50 WBC RBC Hgb Hct MCV MCH MCHC RDW Plt Count MPV Sodium Potassium Chloride Carbon Dioxide Anion Gap BUN Creatinine Creat Clearance w eGFR Random Glucose Calcium Total Bilirubin AST ALT Alkaline Phosphatase Total Protein Albumin Urine Color Yellow Urine Appearance Clear Urine pH 5.0 Ur Specific [place] 1.015 Urine Protein Negative Urine Glucose (UA) Negative Urine Ketones Negative Urine Blood Negative Urine Nitrite Negative Urine Bilirubin Negative Urine Urobilinogen Negative Ur Leukocyte Esterase Negative RPR Titer Labs reviewed - Treatment Hospital Course: Detox Protocol Followed, Detoxed Safely, Responded well, Discharged Condition Good - Medication Discharge Medications: Ambulatory Orders NK [No Known Home Medication] 09/16/18 - Diagnosis (1) Alcohol dependence with uncomplicated withdrawal Current Visit: Yes Status: Acute (2) Anxiety and depression Current Visit: Yes Status: Chronic (3) GERD (gastroesophageal reflux disease) Current Visit: Yes Status: Chronic Qualifiers: Esophagitis presence: without esophagitis Qualified Code(s): K21.9 - Gastro -esophageal reflux disease without esophagitis (4) Hypertension Current Visit: Yes Status: Chronic Qualifiers: Hypertension type: essential hypertension Qualified Code(s): I10 - Essential (primary) hypertension (5) Nicotine dependence Current Visit: Yes Status: Chronic Qualifiers: Nicotine product type: cigarettes Substance use status: uncomplicated Qualified Code(s): F17.210 - Nicotine dependence, cigarettes, uncomplicated (6) Positive PPD, treated Current Visit: Yes Status: Chronic (7) Depression Current Visit: Yes Status: Suspected Qualifiers: Depression Type: dysthymia Qualified Code(s): F34.1 - Dysthymic disorder - AMA Did Patient Leave Against Medical Advice: No (F/U with your PCP within 1-2 weeks )
[2018-09-20 13:26] VITALS: BP 142/96; PULSE 107; TEMP 98.2
== END 2018-09-20 14:36 | disposition home or self-care (01) | DRG 775 ==
LOC: YASAS 16:39 → Y3N 20:33
PROC: HZ2ZZZZ Detoxification Services for Substance Abuse Treatment (ICD-10-PCS; principal; 2018-09-16)
DX: F10.230 Alcohol dependence with withdrawal, uncomplicated (principal); F17.210 Nicotine dependence, cigarettes, uncomplicated; F41.9 Anxiety disorder, unspecified; F34.1 Dysthymic disorder; I10 Essential (primary) hypertension; K21.9 Gastro-esophageal reflux disease without esophagitis; R76.11 Nonspecific reaction to tuberculin skin test without active tuberculosis; Z59.0 Homelessness
CPT/HCPCS: 36415; 71046-TC-FY; 80053; 81003; 85027; 86593; 93005; 93010; J0735

== ENCOUNTER 2018-10-28 17:32 | Inpatient (IN) | payer OTHER ==
[2018-10-28 18:17] VITALS: BMI 30.9
--- NOTE | 2018-10-28 19:49 | HP ---
CIWA Score Nausea/Vomitin-No Nausea/No Vomiting Muscle Tremors: 1-None Visible, but [place] Anxiety: 4-Mod. Anxious/Guarded Agitation: 4-Moderately Restless Paroxysmal Sweats: 3 Orientation: 2-Disoriented Date<2 days Tacttile Disturbances: 0-None Auditory Disturbances: 0-None Visual Disturbances: 0-None Headache: 0-None Present CIWA-Ar Total Score: 14 - Admission Criteria OASAS Guidelines: Admission for Medically Managed Detox: Requires at least one of the followin. CIWA greater than 12 2. Seizures within the past 24 hours 3. Delirium tremens within the past 24 hours 4. Hallucinations within the past 24 hours 5. Acute intervention needed for co occurring medical disorder 6. Acute intervention needed for co occurring psychiatric disorder 7. Severe withdrawal that cannot be handled at a lower level of care (continued vomiting, continued diarrhea, abnormal vital signs) requiring intravenous medication and/or fluids 8. Patient presents the following: CIWA greater than 12 Admission Criteria Met: Admission criteria met Admission ROS [facility] Chief Complaint: C/O WITHDRAWAL SX'S. SEEKING DETOX FROM ALCOHOL Allergies/Adverse Reactions: Allergies Allergy/AdvReac Type Severity Reaction Status Date / Time No Known Allergies Allergy Verified 09/16/18 20:14 History of Present Illness: 58 Y.O. MALE WITH HX/O ALCOHOLISM HERE FOR DETOX. CLIENT IS REFERRED BY HIS HALF-WAY AT [facility]. HE REPORTS HIS LAST ADMISSION HERE TO BE OVER A YEAR AGO. DENIES ANY SIGNIFICANT PERIOD OF CLEAN TIME. DENIES HX/O SEIZURES, DT'S, AVH , BLACK OUTS. HE IS CURRENTLY HOMELESS PMHX- HTN, OA PSYCH- DENIES MEDS- NON COMPLAINT WITH MEDS; DOES NOT RECALL Exam Limitations: No Limitations - Ebola screening Have you traveled outside of the country in the last 21 days: No Have you had contact with anyone from an Ebola affected area: No Have you been sick,other than usual withdrawal symptoms: No Do you have a fever: No - Review of Systems Constitutional: No Symptoms Reported EENT: reports: Other (MISSING TEETH) Respiratory: reports: No Symptoms reported Cardiac: reports: No Symptoms Reported GI: reports: Poor Fluid Intake : reports: No Symptoms Reported Musculoskeletal: reports: Joint Pain (R/T OA) Integumentary: reports: Flushing Neuro: reports: No Symptoms reported Endocrine: reports: No Symptoms Reported Hematology: reports: No Symptoms Reported Psychiatric: reports: Anxious Other Systems: Reviewed and Negative Patient History - Patient Medical History Hx Anemia: No Hx Asthma: No Hx Chronic Obstructive Pulmonary Disease (COPD): No Hx Cancer: No Hx Cardiac Disorders: No Hx Congestive Heart Failure: No Hx Hypertension: Yes Hx Hypercholesterolemia: No Hx Pacemaker: No HX Cerebrovascular Accident: No Hx Seizures: No Hx Dementia: No Hx Diabetes: No Hx Gastrointestinal Disorders: Yes (GERD) Hx Liver Disease: No Hx Genitourinary Disorders: No Hx Sexually Transmitted Disorders: No Hx Renal Disease (ESRD): No Hx Thyroid Disease: No Hx Human Immunodeficiency Virus (HIV): No (last 03/13) Hx Hepatitis C: No Hx Depression: Yes (Not on medication) Hx Suicide Attempt: No (Denies suicidal ideation at this time) Hx Bipolar Disorder: No Hx Schizophrenia: No Other Medical History: DENIES - Patient Surgical History Past Surgical History: Yes Hx Neurologic Surgery: No Hx Cataract Extraction: No Hx Cardiac Surgery: No Hx Lung Surgery: No Hx Breast Surgery: No Hx Breast Biopsy: No Hx Abdominal Surgery: No Hx Appendectomy: No Hx Cholecystectomy: No Hx Genitourinary Surgery: No Hx Section: No Hx Orthopedic Surgery: No Other Surgical History: right inguinal hernia repair in 06/2014 Anesthesia Reaction: No - PPD History Previous Implant?: Yes Documented Results: Negative w/proof Implanted On Prior [facility] Admission?: Yes Date: 01/05/15 Results: POSITIVE PPD to be Administered?: No - Smoking Cessation Smoking history: Current some day smoker Have you smoked in the past 12 months: No Aproximately how many cigarettes per day: 2 Cigars Per Day: 0 Hx Chewing Tobacco Use: No Initiated information on smoking cessation: Yes 'Breaking Loose' booklet given: 10/28/18 - Substance & Tx. History Hx Alcohol Use: Yes Hx Substance Use: Yes Substance Use Type: Alcohol Hx Substance Use Treatment: Yes (CAR) - Substances Abused VODKA Route: Oral Frequency: Daily Amount used: 1 PINT Age of first use: 14 Date of Last Use: 10/28/18 Family Disease History - Family Disease History Family Disease History: [place]: Father (), Other: Father, Mother () , Brother (NO CONTACT), Sister (NO CONTACT) Admission Physical Exam BHS - Vital Signs Vital Signs: Vital Signs - 24 hr 10/28/18 18:16 Temperature 98 F Pulse Rate 103 H Respiratory 18 Rate Blood Pressure 157/94 - Physical General Appearance: Yes: Appropriately Dressed, Alcohol on Breath, Other ( MALODUROUS) HEENTM: Yes: EOMI, Normocephalic, VENECIA, Pharynx Normal, Other (MISSING TEETH) Respiratory: Yes: Chest Non-Tender, Lungs Clear, Normal Breath Sounds, No Respiratory Distress, No Accessory Muscle Use Neck: Yes: No masses,lesions,Nodules, Supple, Trachea in good position Breast: Yes: Breast Exam Deferred Cardiology: Yes: Regular Rhythm, Regular Rate, S1, S2 Abdominal: Yes: Normal Bowel Sounds, Non Tender, Protuberent, Distended Genitourinary: Yes: Within Normal Limits (NO C/O) Back: Yes: Normal Inspection Musculoskeletal: Yes: full range of Motion, Gait Steady Extremities: Yes: Normal Range of Motion, Non-Tender, Tremors (FELT) Neurological: Yes: Alert, Motor Strength 5/5, Depressed Affect Integumentary: Yes: Dry, Warm, Other (FLUSHED) Lymphatic: Yes: Within Normal Limits - Diagnostic (1) At risk for dehydration due to poor fluid intake Current Visit: Yes Status: Acute (2) Alcohol dependence with uncomplicated withdrawal Current Visit: Yes Status: Acute (3) Drug-induced mood disorder Current Visit: Yes Status: Suspected (4) GERD (gastroesophageal reflux disease) Current Visit: Yes Status: Chronic Qualifiers: Esophagitis presence: without esophagitis Qualified Code(s): K21.9 - Gastro -esophageal reflux disease without esophagitis (5) Hypertension Current Visit: Yes Status: Chronic Qualifiers: Hypertension type: essential hypertension Qualified Code(s): I10 - Essential (primary) hypertension (6) Nicotine dependence Current Visit: Yes Status: Chronic Qualifiers: Nicotine product type: cigarettes Substance use status: uncomplicated Qualified Code(s): F17.210 - Nicotine dependence, cigarettes, uncomplicated (7) Positive PPD, treated Current Visit: Yes Status: Chronic (8) Non compliance w medication regimen Current Visit: Yes Status: Chronic Cleared for Admission BHS - Detox or Rehab [facility] Level of Care: Medically Managed Detox Regimen/Protocol: Librium Claeared for Rehab Admission: No BHS Breath Alcohol Content Breath Alcohol Content: 0 Urine Drug Screen - Results Drug Screen Negative: No Urine Drug Screen Results: BZO-Benzodiazepines
[2018-10-28] MEDS ORDERED: chlordiazePOXIDE HCL 25 MG CAPSULE PO PRN (20:04)
[2018-10-28] MEDS ORDERED: MAGNESIUM HYDROX 2400MG/30ML ORAL SUSPENSION 30 ML CUP PO PRN (20:04)
[2018-10-28] MEDS ORDERED: MAGNESIUM CITRATE 300 ML BOTTLE PO PRN (20:04)
[2018-10-28] MEDS ORDERED: IBUPROFEN 400 MG TABLET (FP) PO PRN (20:04)
[2018-10-28] MEDS ORDERED: NICOTINE POLACRILEX 2 MG GUM BUC PRN (20:04)
[2018-10-28] MEDS ORDERED: hydrOXYzine PAMOATE 50 MG CAPSULE (FP) PO PRN (20:04)
[2018-10-28] MEDS ORDERED: ACETAMINOPHEN 325 MG TABLET (FP) PO PRN (20:04)
[2018-10-28] MEDS ORDERED: guaiFENesin/D-METHORPHAN HB 10 ML UNIT-DOSE CUPS PO PRN (20:04)
[2018-10-28] MEDS ORDERED: MENTHOL/PHENOL 1 EACH UD MM PRN (20:04)
[2018-10-28] MEDS ORDERED: LOPERAMIDE HCL 2 MG CAPSULE PO PRN (20:04)
[2018-10-28] MEDS ORDERED: MAG HYDROX/AL HYDROX/SIMETH 30 ML UNIT-DOSE CUP PO PRN (20:04)
[2018-10-28] MEDS ORDERED: P-EPHED 60MG/TRIPROLIDI 2.5MG TABLET PO PRN (20:04)
[2018-10-28] MEDS: THIAMINE HCL 100 MG TABLET (FP) PO SCH (21:09)
[2018-10-28] MEDS: cloNIDine HCL 0.1 MG TABLET PO SCH (21:09)
[2018-10-28] MEDS: MELATONIN 5 MG TABLETS PO PRN (22:21)
[2018-10-28] MEDS: chlordiazePOXIDE HCL 25 MG CAPSULE PO SCH (22:21)
[2018-10-29] MEDS: chlordiazePOXIDE HCL 25 MG CAPSULE PO SCH ×4 (05:42→22:08)
[2018-10-29] MEDS: cloNIDine HCL 0.1 MG TABLET PO SCH ×2 (10:28→22:08)
[2018-10-29] MEDS: NICOTINE 14 MG/24 HOURS TOPICAL PATCH TD SCH (10:29)
[2018-10-29] MEDS: PRENATAL VITAMINS W/ FOLIC ACID TABLET (FP) PO SCH (10:29)
[2018-10-29 10:48] LABS: MCH 22.6 pg (25.7-33.7); MCHC 30.3 g/dl (32.0-35.9); MEAN CELL VOLUME 74.8 fl (80-96); MEAN PLT VOLUME 8.9 fl (7.5-11.1); PLATELET COUNT 133 K/MM3 (134-434); RBC 4.41 M/mm3 (4.00-5.60); RDW 20.7 % (11.9-15.9); WHITE BLOOD COUNT 4.1 K/mm3 (4.0-10.0)
[2018-10-29 11:10] LABS: ALBUMIN 3.2 g/dl (3.4-5.0); ALK PHOS 99 U/L (45-117); ANION GAP 6 MMOL/L (8-16); BILIRUBIN,TOTAL 0.3 mg/dL (0.2-1); BLOOD UREA NITROGEN 19 mg/dL (7-18); CALCIUM 8.3 mg/dL (8.5-10.1); CHLORIDE 104 mmol/L (98-107); CO2 30 mmol/L (21-32); CREATININE 1.1 mg/dL (0.55-1.3); GLUCOSE,RANDOM 78 mg/dL (74-106); POTASSIUM 3.8 mmol/L (3.5-5.1); SGOT/AST 27 U/L (15-37); SGPT/ALT 35 U/L (13-61); SODIUM 140 mmol/L (136-145); TOT PROT 6.9 g/dl (6.4-8.2)
--- NOTE | 2018-10-29 12:08 | PN ---
S CIWA - CIWA Score Nausea/Vomitin-No Nausea/No Vomiting Muscle Tremors: 3 Anxiety: 4-Mod. Anxious/Guarded Agitation: 3 Paroxysmal Sweats: 1-Minimal Palms Moist Orientation: 0-Oriented Tacttile Disturbances: 0-None Auditory Disturbances: 0-None Visual Disturbances: 0-None Headache: 0-None Present CIWA-Ar Total Score: 11 BHS Progress Note (SOAP) Subjective: SLIGHT ANXIETY. PT REPORTS INTERMITTENT SLEEP BUT REQUESTED FOR SLEEPING PILL THAT HELPED. Objective: 10/29/18 12:07 Vital Signs 10/29/18 10/29/18 06:30 09:44 Temperature 97.1 F L 97.8 F Pulse Rate 65 82 Respiratory 18 18 Rate Blood Pressure 121/79 122/80 Laboratory Tests 10/29/18 10/29/18 07:50 07:50 WBC 4.1 RBC 4.41 Hgb 10.0 L Hct 33.0 L MCV 74.8 L MCH 22.6 L MCHC 30.3 L RDW 20.7 H Plt Count 133 L MPV 8.9 Sodium 140 Potassium 3.8 Chloride 104 Carbon Dioxide 30 Anion Gap 6 L BUN 19 H Creatinine 1.1 Creat Clearance w eGFR > 60 Random Glucose 78 Calcium 8.3 L Total Bilirubin 0.3 AST 27 ALT 35 Alkaline Phosphatase 99 Total Protein 6.9 Albumin 3.2 L DECREASED H/H HX OF ANEMIA Assessment: 10/29/18 12:08 WITHDRAWAL SX HX OF ANEMIA Plan: CONTINUE DETOX FEOSOL 325 MG PO BID
[2018-10-29] MEDS: FERROUS SO4 325 MG TABLET (FP) PO SCH ×2 (13:22→22:08)
[2018-10-29] MEDS: MELATONIN 5 MG TABLETS PO PRN (22:08)
[2018-10-29] MEDS: THIAMINE HCL 100 MG TABLET (FP) PO SCH (22:08)
[2018-10-30] MEDS: chlordiazePOXIDE HCL 25 MG CAPSULE PO SCH ×3 (05:32→17:11)
[2018-10-30] MEDS: cloNIDine HCL 0.1 MG TABLET PO SCH ×2 (10:10→22:19)
[2018-10-30] MEDS: NICOTINE 14 MG/24 HOURS TOPICAL PATCH TD SCH (10:10)
[2018-10-30] MEDS: FERROUS SO4 325 MG TABLET (FP) PO SCH ×2 (10:10→22:18)
[2018-10-30] MEDS: PRENATAL VITAMINS W/ FOLIC ACID TABLET (FP) PO SCH (10:10)
--- NOTE | 2018-10-30 15:33 | PN ---
[facility] CIWA - CIWA Score Nausea/Vomitin-Mild Nausea/No Vomiting Muscle Tremors: 3 Anxiety: 2 Agitation: 2 Paroxysmal Sweats: 2 Orientation: 0-Oriented Tacttile Disturbances: 0-None Auditory Disturbances: 0-None Visual Disturbances: 0-None Headache: 0-None Present CIWA-Ar Total Score: 10 [facility] Progress Note (SOAP) Subjective: Tremor, anxious Objective: 10/30/18 15:30 Last Vital Signs Temp Pulse Resp BP Pulse Ox 97.8 F 62 18 140/92 10/30/18 13:24 10/30/18 13:24 10/30/18 13:24 10/30/18 13:24 Laboratory Tests 10/29/18 10/29/18 10/29/18 07:50 07:50 07:50 WBC 4.1 RBC 4.41 Hgb 10.0 L Hct 33.0 L MCV 74.8 L MCH 22.6 L MCHC 30.3 L RDW 20.7 H Plt Count 133 L MPV 8.9 Sodium 140 Potassium 3.8 Chloride 104 Carbon Dioxide 30 Anion Gap 6 L BUN 19 H Creatinine 1.1 Creat Clearance w eGFR > 60 Random Glucose 78 Calcium 8.3 L Total Bilirubin 0.3 AST 27 ALT 35 Alkaline Phosphatase 99 Total Protein 6.9 Albumin 3.2 L RPR Titer Nonreactive Labs reviewed: anemia noted, mild azotemia Assessment: 10/30/18 15:31 Withdrawal symptoms Noted with anemia and mild azotemia Plan: Continue detox Anemia: continue ferrous sulfate, follow up with PCP for monitoring Mild azotemia: encouraged PO water hydration
[2018-10-30] MEDS: THIAMINE HCL 100 MG TABLET (FP) PO SCH (22:18)
[2018-10-30] MEDS: MELATONIN 5 MG TABLETS PO PRN (22:19)
[2018-10-30] MEDS: chlordiazePOXIDE 5 MG CAPSULE PO SCH (22:19)
[2018-10-31] MEDS: chlordiazePOXIDE 5 MG CAPSULE PO SCH ×3 (05:26→17:44)
[2018-10-31] MEDS: cloNIDine HCL 0.1 MG TABLET PO SCH ×2 (10:09→22:11)
[2018-10-31] MEDS: FERROUS SO4 325 MG TABLET (FP) PO SCH ×2 (10:09→22:11)
[2018-10-31] MEDS: PRENATAL VITAMINS W/ FOLIC ACID TABLET (FP) PO SCH (10:09)
[2018-10-31] MEDS: NICOTINE 14 MG/24 HOURS TOPICAL PATCH TD SCH (10:10)
--- NOTE | 2018-10-31 10:21 | PN ---
[facility] Progress Note (SOAP) Subjective: feeling better today no tremor less sweat no gi distress social with peers in day room Objective: 10/31/18 10:20 Vital Signs Temperature 97.9 F 10/31/18 09:25 Pulse Rate 87 10/31/18 09:25 Respiratory Rate 17 10/31/18 09:25 Blood Pressure 126/88 10/31/18 09:25 O2 Sat by Pulse Oximetry (%) Laboratory Last Values WBC 4.1 K/mm3 (4.0-10.0) 10/29/18 07:50 RBC 4.41 M/mm3 (4.00-5.60) 10/29/18 07:50 Hgb 10.0 GM/dL (11.7-16.9) L 10/29/18 07:50 Hct 33.0 % (35.4-49) L 10/29/18 07:50 MCV 74.8 fl (80-96) L 10/29/18 07:50 MCH 22.6 pg (25.7-33.7) L 10/29/18 07:50 MCHC 30.3 g/dl (32.0-35.9) L 10/29/18 07:50 RDW 20.7 % (11.9-15.9) H 10/29/18 07:50 Plt Count 133 K/MM3 (134-434) L 10/29/18 07:50 MPV 8.9 fl (7.5-11.1) 10/29/18 07:50 Sodium 140 mmol/L (136-145) 10/29/18 07:50 Potassium 3.8 mmol/L (3.5-5.1) 10/29/18 07:50 Chloride 104 mmol/L (98-107) 10/29/18 07:50 Carbon Dioxide 30 mmol/L (21-32) 10/29/18 07:50 Anion Gap 6 MMOL/L (8-16) L 10/29/18 07:50 BUN 19 mg/dL (7-18) H 10/29/18 07:50 Creatinine 1.1 mg/dL (0.55-1.3) 10/29/18 07:50 Creat Clearance w eGFR > 60 (>60) 10/29/18 07:50 Random Glucose 78 mg/dL (74-106) 10/29/18 07:50 Calcium 8.3 mg/dL (8.5-10.1) L 10/29/18 07:50 Total Bilirubin 0.3 mg/dL (0.2-1) 10/29/18 07:50 AST 27 U/L (15-37) 10/29/18 07:50 ALT 35 U/L (13-61) 10/29/18 07:50 Alkaline Phosphatase 99 U/L (45-117) 10/29/18 07:50 Total Protein 6.9 g/dl (6.4-8.2) 10/29/18 07:50 Albumin 3.2 g/dl (3.4-5.0) L 10/29/18 07:50 RPR Titer Nonreactive (NONREACTIVE) 10/29/18 07:50 lab noted Assessment: 10/31/18 10:20 mild withdrawal sx Plan: medically supervised detox
[2018-10-31] MEDS: chlordiazePOXIDE HCL 10 MG CAPSULE PO SCH (22:11)
[2018-10-31] MEDS: MELATONIN 5 MG TABLETS PO PRN (22:11)
[2018-10-31] MEDS: THIAMINE HCL 100 MG TABLET (FP) PO SCH (22:11)
[2018-11-01] MEDS: chlordiazePOXIDE HCL 10 MG CAPSULE PO SCH ×2 (05:28→10:10)
[2018-11-01] MEDS: FERROUS SO4 325 MG TABLET (FP) PO SCH (10:08)
[2018-11-01] MEDS: PRENATAL VITAMINS W/ FOLIC ACID TABLET (FP) PO SCH (10:08)
[2018-11-01] MEDS: NICOTINE 14 MG/24 HOURS TOPICAL PATCH TD SCH (10:09)
[2018-11-01] MEDS: cloNIDine HCL 0.1 MG TABLET PO SCH (10:09)
[2018-11-01 10:52] VITALS: BP 133/90; PULSE 92; TEMP 97.8
--- NOTE | 2018-11-01 10:53 | DS ---
[facility] Detox Discharge Summary Admission Date: 10/28/18 Discharge Date: 11/01/18 - History Present History: Alcohol Dependence - Physical Exam Results Vital Signs: Vital Signs Temperature 97 F L 11/01/18 06:17 Pulse Rate 77 11/01/18 06:17 Respiratory Rate 18 11/01/18 06:17 Blood Pressure 133/87 11/01/18 06:17 O2 Sat by Pulse Oximetry (%) Pertinent Admission Physical Exam Findings: Pt was referred here by [facility] for alcohol detox. Pt did well , completed detox and is now going to [facility] for rehab - Treatment Hospital Course: Detox Protocol Followed, Detoxed Safely, Responded well, Discharged Condition Good, Rehab Referral Accepted - Medication Discharge Medications: Ambulatory Orders NK [No Known Home Medication] 09/16/18 - Diagnosis (1) Alcohol dependence with uncomplicated withdrawal Current Visit: Yes Status: Acute (2) At risk for dehydration due to poor fluid intake Current Visit: Yes Status: Acute (3) Nicotine dependence Current Visit: Yes Status: Chronic Qualifiers: Nicotine product type: cigarettes Substance use status: in withdrawal Qualified Code(s): F17.213 - Nicotine dependence, cigarettes, with withdrawal - AMA Did Patient Leave Against Medical Advice: No
== END 2018-11-01 11:58 | disposition home or self-care (01) | DRG 775 ==
LOC: YASAS 17:32 → Y3N 20:37
PROC: HZ2ZZZZ Detoxification Services for Substance Abuse Treatment (ICD-10-PCS; principal; 2018-10-28)
DX: F10.230 Alcohol dependence with withdrawal, uncomplicated (principal); F17.213 Nicotine dependence, cigarettes, with withdrawal; F34.1 Dysthymic disorder; I10 Essential (primary) hypertension; K21.9 Gastro-esophageal reflux disease without esophagitis; M19.90 Unspecified osteoarthritis, unspecified site; R76.11 Nonspecific reaction to tuberculin skin test without active tuberculosis; R79.89 Other specified abnormal findings of blood chemistry; Z86.2 Personal history of diseases of the blood and blood-forming organs and certain disorders involving the immune mechanism; Z91.89 Other specified personal risk factors, not elsewhere classified; Z91.14 Patient's other noncompliance with medication regimen; Z59.0 Homelessness
CPT/HCPCS: 36415; 71046-TC-FY; 80053; 85027; 86593; J0735